=== PATIENT | male | born 1985 | race Two or more races ===

== ENCOUNTER 2017-04-23 06:59 | Emergency (ER) | payer MEDICAID ==
[~2017-04-23] VITALS: Ht 180.3 cm; Wt 94.8 kg
[2017-04-23 07:16] VITALS: BP 122/77
[2017-04-23] MEDS ORDERED: IBUPROFEN 800 MG TAB PO ONE ×2 (08:39→08:45)
== END 2017-04-23 08:42 ==
LOC: ER 06:59
DX: S63.91XA Sprain of unspecified part of right wrist and hand, initial encounter (principal); S46.919A Strain of unspecified muscle, fascia and tendon at shoulder and upper arm level, unspecified arm, initial encounter; F17.210 Nicotine dependence, cigarettes, uncomplicated; V43.62XA Car passenger injured in collision with other type car in traffic accident, initial encounter; Y93.89 Activity, other specified; Y99.8 Other external cause status; Y92.89 Other specified places as the place of occurrence of the external cause
CPT/HCPCS: 73130